=== PATIENT | female | born 1965 | race Caucasian/White ===

== ENCOUNTER → 2023-05-18 15:44 | Outpatient (CLI) | payer OTHER, SELFPAY ==
--- NOTE | ~2023-05-18 | XR_ITS ---
AP and lateral views of the right hip Clinical history: Pain Findings: No acute fracture or dislocation is seen. Osseous alignment is anatomic. Bilateral hip and SI joint spaces are preserved. Soft tissues are unremarkable. Impression: No significant abnormality is seen. Reviewed, dictated and finalized at location . Impression: No significant abnormality is seen.
== END ==
PROVIDERS: PCP Family Medicine Adolescent Medicine; Visit Provider Family Medicine Adolescent Medicine
DX: M25.551 Pain in right hip (principal)
CPT/HCPCS: 73502

== ENCOUNTER 2024-01-23 15:27 | Emergency (ER) | payer OTHER, SELFPAY ==
--- NOTE | ~2024-01-23 | XR_ITS ---
EXAMINATION: XR wrist LT min 3V DATE: 01/23/2024 15:58 INDICATION: Left wrist pain post fall TECHNIQUE: Posteroanterior, ulnar deviation, oblique, and lateral views of the left wrist were obtain ed. COMPARISON: none FINDINGS: Bone alignment is normal. No fracture. Mild osteoarthritis at the triscaphe and first carpal metacarp al joints. Subarticular lucency underlying the ulnar side of the proximal articular surface of the ishaan esther in location suspicious for ulnocarpal impaction although ulnar variance remains neutral. IMPRESSION: 1. Mild osteoarthritis at the radial aspect of the carpus. No acute osseous abnormality. Reviewed, dictated and finalized at location B. IMPRESSION: 1. Mild osteoarthritis at the radial aspect of the carpus. No acute osseous abn ormality.
--- NOTE | 2024-01-23 15:39 | ED.UPPEXIN ---
HPI - Extremity Injury (Upper) General Chief Complaint: Extremity Injury, Upper Stated Complaint: L WRIST INJ S/P FALL Time Seen by Provider: 01/23/24 15:35 Source: patient Mode of arrival: ambulatory Limitations: no limitations History of Present Illness HPI narrative: Patient is a 58-year-old female who presents the ED with report of left wrist pain. Patient reports she went to sit down in a chair and slipped, missing the chair. She tried to catch herself with her left arm/ wrist. Complains of pain to her left wrist. Denies any other areas of pain. Denies any other injuries. Denies numbness. Has not taken anything for pain. Related Data Home Medications Medication Instructions Recorded Confirmed vilazodone 40 mg tablet (Viibryd) 40 mg PO DAILY 01/18/22 11/03/23 Allergies Allergy/AdvReac Type Severity Reaction Status Date / Time ketorolac [From Toradol] Allergy Intermediate Hives Verified 11/03/23 15:14 Penicillins AdvReac Severe Hives Verified 11/03/23 15:14 methylprednisone Allergy Mild Hives Uncoded 11/03/23 15:14 Review of Systems Review of Systems: CONSTITUTIONAL: Denies fever, chills, or sweats. MUSCULOSKELETAL: See HPI NEUROLOGIC: Denies headache, dizziness, numbness, or weakness. All systems reviewed & are unremarkable except as noted in HPI and below PMFSH Past Medical History Medical History GERD (gastroesophageal reflux disease) HTN (hypertension) Low back pain, unspecified Major depressive disorder, recurrent, mild Osteoarthritis of left knee Pure hypercholesterolemia, unspecified Surgical History Surgical History History of lumbar fusion (2002) 2002 Family History Family History Father Hx of CABG Hypertension Cerebrovascular accident Heart disease Mother Brain cancer Daughter Diabetes mellitus Social History Social History Smoking status: Never smoker Second hand tobacco smoke exposure: No Alcohol intake: never Substance use: never Substance use type: does not use Living arrangements: with family Occupation/Education: occupation Gender identity (if verbalized by the patient): Female Spiritual care concerns: No Agree to blood products: Yes Exam Narrative: GENERAL: Well appearing, obese with BMI of 33.7, non-toxic, in no acute distress. HEAD: Normocephalic, atraumatic. RESPIRATORY: Airway patent, respirations nonlabored CARDIOVASCULAR: Regular rate and rhythm. Radial pulses strong and intact bilaterally. MUSCULOSKELETAL: Moves all extremities. No gross deformities. tenderness to palpation and mild swelling noted over distal radius. Minimal tenderness throughout snuffbox region. No significant tenderness over distal ulna. Able to wiggle all fingers. Capillary refill intact. Sensation intact. SKIN: Warm, dry, normal color. NEURO: A&O X3. Speech clear. Cranial nerves II-XII grossly intact. Steady gait. No ataxic movements. PSYCHIATRIC: Appropriate mood and affect. Normal interaction. MDM - Extremity Injury (Upper) MDM Narrative Medical decision making narrative: Patient?s injury is consistent with musculoskeletal etiology. No signs of neurologic or vascular compromise on physical examination. Compartments are soft without signs of compartment syndrome. XR without acute osseous abnormality. Does show possible ulnocarpal impaction. Patient does not have any tenderness over distal ulna. Pain is consistent with exam and injury. Patient placed in Chad bandage in the ED. she does have some minimal snuffbox tenderness on exam. Discussed this with patient. Offered to apply splint versus Chad bandage, however patient felt comfortable with Chad bandage, felt supported. Also provided with sling for suppor
[2024-01-23] MEDS: HYDROcodone/acetaminophen (*CRX) 5-325 MG TABLET 1 TAB PO (15:44)
== END 2024-01-23 17:27 | disposition home or self-care (01) ==
LOC: ANHED 17:01
PROVIDERS: Emergency Provider Physician Assistant; PCP Family Medicine Adolescent Medicine
DX: S63.502A Unspecified sprain of left wrist, initial encounter (principal); I10 Essential (primary) hypertension; E78.00 Pure hypercholesterolemia, unspecified; M17.12 Unilateral primary osteoarthritis, left knee; K21.9 Gastro-esophageal reflux disease without esophagitis; Z98.1 Arthrodesis status; M19.032 Primary osteoarthritis, left wrist; W07.XXXA Fall from chair, initial encounter
CPT/HCPCS: 73110; 73140; 99283; A9270

== ENCOUNTER 2024-12-01 11:33 | Emergency (ER) | payer OTHER, SELFPAY ==
--- OUTSIDE RECORDS SUMMARY | 2024-12-01 11:35 | XMS_ITS | Clinical Summary ---
Author Organization [facility] Address [address] [place] [address] Care Team Providers Care Roof Service Technician Name Role Phone Enrico Ziegler MD Primary Care Prov ider Allergies Active Allergy Reactions Criticality Noted Date Comments Ketorolac Rash Medium 11/16/2018 Medications nortriptyline (PAMELOR) 25 mg capsule Take 1 capsule (25 mg total) by mouth nightly. 30 capsule 11 12/29/2017 Active lisinopril (PRINIVIL,ZESTRI L) 10 mg tablet Take 10 mg by mouth daily. Active omeprazole (PriLOSEC) 20 mg capsule Take 20 mg by mouth daily 11/01/2020 Active meloxicam (MOBIC) 7.5 mg tablet Take 1 tablet (7.5 mg total) by mouth 2 (two) times a day 60 tablet 11/20/2021 Active nortriptyline (PAMELOR) 25 mg capsuleIndicatio ns:Postlaminecto my syndrome, lumbar,Radiculop athy, lumbosacral region TAKE 1 CAPSULE(25 MG) BY MOUTH EVERY NIGHT 90 capsule 3 12/16/2021 Active busPIRone (BUSPAR) 10 mg tablet Take 10 mg by mouth 2 (two) times a day 01/18/2022 Active traMADoL (ULTRAM) 50 mg tablet Take 1 tablet (50 mg total) by mouth every 6 (six) hours as needed for pain 120 tablet 1 01/31/2022 Active Viibryd 40 mg tabletIndication s:major depressive disorder Take 1 tablet (40 mg total) by mouth daily 7 tablet 12/15/2023 Active vilazodone (VIIBRYD) 40 mg tablet TAKE 1 TABLET DAILY WITH FOOD 90 tablet 3 03/05/2024 Active Active Problems Problem Noted Date Diagnosed Date Strain of flexor muscle of hip, left, initial en counter 11/20/2021 Obesity due to excess calories 05/04/2019 Spinal cord stimulator status 05/04/2019 Sacroiliitis 08/25/2018 Chronic bilateral low back pain with bilateral s ciatica 08/31/2017 Lumbosacral spondylosis without myelopathy 08/31 Radiculopathy, lumbosacral region 08/31/2017 Spinal stenosis of lumbar re gion without neurogenic claudication 08/31/2017 Postlaminectomy syndrome, lumbar 08/31/2017 Long-term current use of opiate analgesic 2016 Surgical History Surgery Date Site/Laterality Comments SPINE SURGERY SPINAL CORD STIMULATOR IMPLANT SPINAL FUSION Medical History Medical History Date Comments Chronic pain disorder Depression Lumbosacral disc disease Hypertension Joint pain Low back pain Osteoporosis Spinal stenosis Social History Tobacco Use Types Packs/Day Years Used Date Smoking Tobacco: Never Smokeless Tobacco: Never Alcohol Use Standard Drinks/Week Comments Yes 0 (1 standard drink = 0.6 oz pur e alcohol) seldom PHQ-2 Answer Date Recorded PHQ-2 Score 2 05/04/2019 Comments No Sex and Gender Information Value Date Recorded Sex Assigned at Not on file Legal Sex Female 9:53 AM 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 Gender Identity Not on file Sexual Orientation Not on file Obstetrics History Last Filed Vital Signs Vital Sign Reading Time Taken Comments Blood Pressure 130/89 02/18/2022 8:28 AM CDT Pulse 91 02/18/2022 8:28 AM CDT Temperature 36.3 C (97.3 F) 11/10/2020 3:49 PM 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 SPECIALIST Respiratory Rate 18 02/18/2022 8:28 AM CDT Oxygen Saturation 98% 02/18/2022 8:28 AM CDT Inhaled Oxygen Concentration - - Weight 101.6 kg (224 lb) 11/10/2020 3:49 PM 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 SPECIALIST Height 170.2 cm (5' 7 ) 11/20/2021 7:22 AM 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 SPECIALIST Body Mass Index 35.08 09/10/2019 7:19 AM 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 SPECIALIST Plan of Treatment Health Maintenance Due Date Last Done Comments Cervical Cancer Screening 1965 Colon Cancer Screening-Colonoscopy 1965 Hepatitis C Screening 1965 DTaP/Tdap/Td Vaccine (1 - Tdap) 1976 Hepatitis B Screening 1983 Regular Well Visit/Exam 18-64 1983 Zoster Vaccine (1 of 2) 2015 Depression Screening 05/04/2020 05/04/2019, 05/04/2019, 01/09/2019, Additional history exists Breast Cancer Screening-Mammogram 02/25/2024 02/24/2023, 04/19/2016, 04/15/2014 Influenza Vaccine (#1) 2024 08/07/2018, 2014 Pneumococcal vaccine <65 Aged Out No longer eligible based on patient's age to complete this topic Medical Devices Implanted Type Area Dock Associate Device Identifier Shelf Expiration Date Model / Serial / Lot Spinal Cord Stimulator Spinal Cord Stimulator Back [employer] Neurostimulator [employer] Elite Thk13.4 Mm 5 In W49.5 Mm X H55.5 Mm Spinal Cord Implantable Pulse - [id number] - [id number] Implanted:Qty: 1 on 10/20/2017 by Danie Kathleen MD at [facility] [employer] 08/18/2019 [id number] / [id number] / Explanted Type Area Dock Associate Device Identifier Shelf Expiration Date Model / Serial / Lot Gallito Spinal Cord Stimulator Explanted:Qty: 1 on 10/20/2017 at [facility] [employer] 3788 / [id number] / Procedures Procedure Name Priority Date/Time Associated Diagnosis Comments SCREENING MAMMOGRAM BILATERAL W KT Schedule Routine, Read Routine (OP Routine) 02/24/2023 2:12 PM CDT Screening mammogram, encounter for from Last 3 Months or Most Recently Relevant to Health Maintenance Results * Screening Mammogram Bilateral W Kt (02/24/2023 2:12 PM CDT) Anatomical Region Laterality Modality Breast Bilateral Mammography Narrative 02/24/2023 2:42 PM CDT Examination: Screening Mammogram Bilateral W Kt: 02/24/23 Clinical: Screening mammogram, encounter for. Prior Study Comparisons: Comparison was made to the prior available relevant studies at the time of interpretation. Findings: Bilateral No significant masses, malignant type calcifications, skin thickening, nipple retraction, or significant lymphadenopathy is noted in either breast. The CAD review showed no significant findings. The breasts have scattered areas of fibroglandular density. The patient will be notified of results by letter. Impression: BI-RADS ATLAS category (overall): 1 - Negative There is no mammographic evidence of malignancy. Routine Screening Mammogram in 1 Yr is recommended for bilateral Overall Assessment: 1 - Negative us Self Screening Mammogram IMG MAMMO PROCEDURES Fi nal Result from Last 3 Months or Most Recently Relevant to Health Maintenance Insurance [facility] [employer] Address: [facility] [address] [place] [address] [facility] [employer] H[facility]/PPO Address: [address] [address] [place] [address] [facility] [facility] H[employer]/PPO Address: [address] [address] [place] [phone] Care Teams Roof Service Technician Relationship Specialty Start Date End Date Enrico Ziegler MD [address] [place] [id number] PCP - General Family Medicine 11/20/21
--- OUTSIDE RECORDS SUMMARY | 2024-12-01 11:35 | XMS_ITS | Data Portability ---
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 I will see her back next week for the 2nd injection left knee she voiced understanding agrees above plan she will call for any further problems difficulties or questions. Not available 02/09/2024 10:53:10 02/17/2024 02/17/2024 The patient has severe primary osteoarthritis of the patellofemoral articulation left knee mild to moderate primary osteoarthritis in the tibial femoral articulation at her request under sterile conditions I injected the patient's left knee joint in the office with Euflexxa injection number 2. I will see her back next week for the 3rd injection that she brings from the specialty pharmacy. She voiced understanding agrees above plan she will call for any further problems difficulties or questions. Not available 02/17/2024 12:14:08 02/21/2024 02/21/2024 The patient has a healing fracture of the distal radius left wrist. Today's x-rays show new callus formation her comfort level and range of motion are much better and improving with time. She is going to continue with cock-up wrist brace continue with gentle range of motion gentle strengthening I will see her back in about 3 weeks for final x-rays. If she is any further problems difficulties or questions she is instructed to call she voiced understanding and agrees with the above plan. Not available 02/21/2024 15:41:26 02/23/2024 02/23/2024 The patient has severe primary osteoarthritis in the patellofemoral articulation left knee mild to moderate in the tibial femoral articulation we talked about treatment options today for the future we could do cortisone in a few months versus gel shots again in 6 months we will see how she does so far she is doing very well with the current round of gel shots. under sterile conditions today I injected the patient's left knee joint in the office with Euflexxa injection number 3 that she brings with her from the specialty pharmacy. She tolerated the procedure well. I will see her back as needed she voiced understanding agrees above plan she will call for any further problems difficulties or questions. Not available 02/23/2024 11:36:45 03/27/2024 03/27/2024 The patient has a healed fracture of the left distal radius today's x-rays show good alignment and callus formation. At this point she can get out of the cock-up wrist brace start working on more motion and strengthening as tolerated. I have advised her it is going to be a little stiff and sore for awhile until she gets back into normal activities gets it moving. She is going to work on this we talked about this in detail she wants to work on it on her own at home. I will see her back as needed for now she is dismissed she voiced understanding and agrees above plan she will call for any further problems difficulties or questions. Not available 03/27/2024 14:30:41 Plan of Treatment Reminders Order Date Submit Date Provider Last Modified By Organization Details Last Modified Time Details Appointments None recorded. Lab None recorded. Referral None recorded. Procedures injection/a spiration joint/bursa (PROC) - in office procedure, administere d by provider 2023 024 [email or web address] In-Office Order, Internal Use Only DO Not Attach Compendium DO Not Attach Compendium, Do Not Delete/merge, [id number] 11:27:18 injection/a spiration joint/bursa (PROC) - in office procedure, administere d by provider 2023 024 [email or web address] In-Office Order, Internal Use Only DO Not Attach Compendium DO Not Attach Compendium, Do Not Delete/merge, [id number] 12:05:05 injection/a spiration joint/bursa (PROC) - in office procedure, administere d by provider 2023 024 [email or web address] In-Office Order, Internal Use Only DO Not Attach Compendium DO Not Attach Compendium, Do Not Delete/merge, [id number] 10:37:04 Surgeries None recorded. Imaging XR, wrist, 3 or more view 2023 024 [email or web address] [facility] [place], [address], [place], [address], 4 15:35:14 XR, wrist 2023 024 [email or web address] [facility] [place], [address], [place], [address], 4 15:43:49 Medication Orders None recorded. Patient TargetsNo targets recorded. Patient InstructionsNo instructions recorded. Reason for Referral None Reported. Results Created Date Observation Date Name Description Value Unit Range Abnormal Flag Note LastModifiedBy Organization Detail LastModifiedTime 01/26/20 24 01/23/2024 XR, wrist , 3 or more view No observ ation record ed. [email or web address] Not Available 01/10 10:51:49 02/21/20 24 XR, wrist No observ ation record ed. [email or web address] [facility] [place] [address], [place], [address], 02/21/2024 15:42:36 03/27/20 24 XR, wrist , 3 or more view No observ ation record ed. [email or web address] [facility] [place] [address], [place], [address], 03/27/2024 14:31:12 Result Notes None recorded. Problems Name Problem SNOMED Code Status Onset Date Resolution Date Notes Provider Name and Address Organization Details Recorded Time Osteoarthr itis of left knee joint 1256422779388 09 Active 2021 Not Available [facility] 3 01:24:24 Osteoarthr itis of right knee joint 7351221067527 00 Active 2021 Not Available [facility] 3 01:24:24 Pain of left knee joint 7670279493915 07 Active 2023 Jael Bain ACCESSIBILITY LIFT TECHNICIAN null, [place] [facility] 4 15:14:23 Pain of left hand 6458102631857 03 Active 2023 Jael Odell, ACCESSIBILITY LIFT TECHNICIAN null, [place] [email or web address] 4 14:34:55 Pain of left wrist 4721079353646 02 Active 2023 Jael Odell, ACCESSIBILITY LIFT TECHNICIAN null, [place] [facility] 4 14:35:05 Closed fracture of distal end of left radius 6640625273042 9107 Active 2023 PEGGY Barron [address] [place] [address], [facility] [address], [place], [address] , [place] [email or web address] 4 14:58:57 Problem Notes None recorded. Procedures Surgical History Date Name Laterality Status Provider Name and Address Organization Details Recorded Time Back Surgery completed CATIE PatelA [place] [facility] 12/01/2023 15:14:02 Imaging Results Imaging Date Name Status LastModified by Organiz ation Details LastModified Time 01/23/2024 XR, wrist, 3 or more view completed [email or web address] Information not available 01/26/2024 10:51:49 02/21/2024 XR, wrist completed [email or web address] [facility] [place] [address], [place], [address], 02/21/2024 15:42:36 03/27/2024 XR, wrist, 3 or more view completed [email or web address] [facility] [place] [address], [place], [address], 03/27/2024 14:31:12 Procedure Notes None recorded. Medical Equipment None Reported. Allergies Allergen ID Allergen Name Allergen Category Reaction Reaction Severity Criticality Documentation Date Start Date Code Code System Note Provider Name and Address Organization Details Recorded Time 99198 Product containin g penicilli n (product) medicatio n Not available Not available Not available 12/01/2023 78827 8001 SNOMED NNEKA Patel, [place] [facility] 15:10:16 Medications Name Sig Start Date Stop Date Status Note LastModified by Organization Details LastModified Time cyclobenzap rine 10 mg tablet active Not Available Not Available Not Available prednisone 10 mg tablet 11/30 completed Not Available Not Available Not Available hydrocodone 5 mg-acetamin ophen 325 mg tablet active Not Available Not Available No t Available ciprofloxac in 500 mg tablet TAKE 1 TABLET BY MOUTH EVERY 12 HOURS FOR 7 DAYS 11/30 completed Not Available Not Available Not Available sulfamethox azole 800 mg-trimetho prim 160 mg tablet TAKE 1 TABLET BY MOUTH TWICE DAILY FOR 5 DAYS 11/30 completed Not Available Not Available Not Available hydrocodone 10 mg-acetamin ophen 325 mg tablet TAKE 1 TABLET BY MOUTH EVERY 6 HOURS NEEDED FOR PAIN 11/30 completed Not Available Not Available Not Available tramadol 50 mg tablet TAKE 1 TABLET BY MOUTH EVERY 6 HOURS NEEDED FOR PAIN active Not Available Not Available No t Available prednisone 10 mg tablets in a dose pack Take 1 tab by mouth, 3 times a day for 3 daysTake 1 tab by mouth 2 times a day for 2 daysTake 1 tab by mouth once a day for 1 day 11/30 completed Not Available Not Available Not Available nortriptyli ne 25 mg capsule active Not Available Not Available Not Available meloxicam 7.5 mg tablet 11/30 completed Not Available Not Available Not Available alprazolam 0.5 mg tablet active Not Available Not Available Not Available Kenalog 10 mg/mL suspension for injection Take 20 mg by injection route. 2023 active [facility]: 0003- 0494- 20 Not Available Not Available Not Available baclofen 10 mg tablet 11/30 completed Not Available Not Available Not Available buspirone 10 mg tablet TAKE 1 TABLET BY MOUTH TWICE DAILY 11/30 completed Not Available Not Available Not Available lisinopril 10 mg tablet active Not Available Not Available Not Available indomethaci n 50 mg capsule 11/30 completed Not Available Not Available Not Available omeprazole 20 mg capsule,del ayed release TAKE ONE CAPSULE BY MOUTH EVERY DAY active Not Available Not Available No t Available methylpredn isolone 4 mg tablets in a dose pack 11/30 completed Not Available Not Available Not Available Marcaine (PF) 0.5 % (5 mg/mL) injection solution Take 20 mg by injection route. 2023 active Not Available Not Available Not Avai lable nitrofurant oin monohydrate /macrocryst als 100 mg capsule TAKE 1 CAPSULE BY MOUTH TWICE DAILY FOR 7 DAYS 11/30 completed Not Available Not Available Not Available Euflexxa 10 mg/mL (mw 2.4-3.6 million) intra-artic ular syringe Inject 2 mL by intra-art icular route as directed for 21 days. active Not Available Not Available No t Available vilazodone 40 mg tablet TAKE 1 TABLET BY MOUTH EVERY DAY WITH FOOD active Not Available Not Available No t Available ropivacaine (PF) 5 mg/mL (0.5 %) injection solution in office 11/30 completed [facility] 49363 -064- 01 Not Available Not Available Not Available Flowflex COVID-19 Antigen Home Test kit active Not Available Not Available Not Available Vitals Date Recorded Body height Body mass index (BMI) Body weight Provider Name and Address Organization Details Last Updated DateTime 02/09/2024 170.18 cm 33.7 kg/m2 49260.36 g Jael Bain CNA [employer] 02/09/2024 10:35:40 Date Recorded Body height Body mass index (BMI) Body weight Provider Name and Address Organization Details Last Updated DateTime 02/17/2024 167.64 cm 34.7 kg/m2 16620.36 g Jael Bain CNA [place] [facility] 02/17/2024 12:04:18 Date Recorded Body height Body mass index (BMI) Body weight Provider Name and Address Organization Details Last Updated DateTime 02/21/2024 170.18 cm 33.7 kg/m2 97325.36 g Jael Bain CNA [facility] 02/21/2024 15:16:20 Date Recorded Body height Body mass index (BMI) Body weight Provider Name and Address Organization Details Last Updated DateTime 02/23/2024 170.18 cm 33.7 kg/m2 44634.36 g Jael Bain [facility] 02/23/2024 11:26:34 Date Recorded Body height Body mass index (BMI) Body weight Pain severity - 0-10 verbal numeric rating [Score] - Reported Provider Name and Address Organization Details Last Updated DateTime 03/27/2024 170.18 cm 32.7 kg/m2 87131.81 g 5 Martina Maciel [facility] 03/27/2024 14:08:45 Social History Question Answer Notes LastModified by Organizat ion Details LastModified Time Tobacco Smoking Status Never Smoker Not Available [facility] 11/11/2022 01:23:13 What Is Your Level Of Alcohol Consumption? None [id number] Information not available 11/11/2022 Sex: Unknown Functional Status None recorded. Mental Status None recorded. Family History Relationship Description Onset Age of this Age Resolved Age Notes LastModified by Organization Details LastModified Time Mother Malignant neoplasm of brain [id number] Not available 11/11/2022 01:23:19 Father Heart disease [email or web address] Not available 2023 15:13:20 Medical History No medical history recorded. Gynecological HistoryNo gynecological history recorded. Obstetrics History GPAL:G 0 P 0 0 0 0 Past Encounters Encounter ID Performer Location Encounter Start Date Encounter Closed Date Diagnosis/Indication Diagnosis SNOMED-CT Code Diagnosis ICD10 Code Diagnosis Note [id number] [facility] [place] [address] [place] [address] 08/03/2022 00:00:00 08/03/2022 16:22:37 [id number] PEGGY Barron [facility] [place] [address] [place] [address] 02/03/2023 10:38:27 02/03/2023 11:03:07 Osteoarthritis of left knee joint 4115835608 88961 M17.12 [id number] PEGGY aBrron [facility] [place] [address] [place] [address] 12/01/2023 14:55:13 12/01/2023 16:17:12 Osteoarthritis of left knee joint 2812368462 81296 M17.12 Pain of le ft knee joint 3826882386 30863 M25.058 [id number] PEGGY Barron [facility] [place] [address] [place] [address] 01/31/2024 14:26:27 01/31/2024 15:20:40 Pain of left wrist 4845657850 19878 M25.532 Closed fra cture of distal end of left radius 2535628921 0807742 S52.502A [id number] PEGGY Barron [facility] [place] [address] [place] [address] 02/09/2024 10:32:34 02/09/2024 11:15:03 Osteoarthritis of left knee joint 6686041559 61947 M17.12 Pain of le ft knee joint 7174763768 53168 M25.139 [id number] PEGGY Barron [facility] [place] [address] [place] [address] 02/17/2024 12:01:25 02/17/2024 12:15:56 Osteoarthritis of left knee joint 3386599171 23341 M17.12 Pain of le ft knee joint 6953470011 44893 M25.038 [id number] PEGGY Barron [facility] [place] [address] [place] [address] 02/21/2024 15:11:11 02/21/2024 15:38:41 Closed fracture of distal end of left radius 1321396579 1246680 S52.502D Pain of left wrist 66674 78840 13477 M25.883 [id number] PEGGY Barron [facility] [place] [address] [place] [address] 02/23/2024 11:23:23 02/23/2024 11:36:12 Osteoarthritis of left knee joint 2599318184 03178 M17.12 Pain of le ft knee joint 3314330177 86098 M25.542 [id number] PEGGY Barron [facility] [place] [address] [place] [address] 03/27/2024 14:05:19 03/27/2024 14:46:18 Closed fracture of distal end of left radius 0250327038 8800412 S52.502D Pain of left wrist 26604 55325 15739 M25.532 Health Concerns Section Related Observation LastModified by Organization Detai ls LastModified Time None Recorded Concern Status LastModified by Organization Details LastModified Time None Recorded Advance Directives Directive None Recorded Payers Encounter Date Sequence Insurance Name Policy Number Policy Khan Covered Member ID Khan Member ID Guarantor Name 02/09/2024 1 [facility] [id number] Sonia L Segieda [id number] Sonia Segieda 02/17/2024 1 [facility] [id number] Sonia L Segieda [id number] Sonia Segieda 02/21/2024 1 [facility] [id number] Sonia L Segieda [id number] Sonia Segieda 02/23/2024 1 [facility] [id number] Sonia L Segieda [id number] Sonia Segieda 03/27/2024 1 [facility] [id number] Sonia L Segieda [id number] Sonia Segieda Notes Date Note Type Note Provider Name and Address Organization Details Recorded Time 02/09/2024 text/html Patient returns for Euflexxa injection number 1 left knee that she brings from the specialty pharmacy. She has chronic left knee pain she has advanced primary osteoarthritis of the patellofemoral articulation has trouble squatting kneeling going up and down stairs. She has mild to moderately severe primary osteoarthritis of the tibial femoral articulation as well. She is tried cortisone therapy and anti-inflammatories still has some pain she would now like to try a course of gel shots. Denies any new problems with her left knee. PEGGY Barron [address], [place], [address], [email or web address] 02/09/2024 10:53:21 02/17/2024 text/html Patient returns for Euflexxa injection number 2 left knee. 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 She is failed other conservative measures but states even after the 1st injection of the Euflexxa she was able to walk around on vacation in [place] last weekend and did very well had much less pain than previously. She is quite pleased with the results so far. PEGGY Barron [address], [place], [address], [email or web address] 02/17/2024 12:14:27 02/21/2024 text/html Patient returns for recheck of her left wrist. She had an impaction type fracture of the distal radius there was some avulsion and buckling of the dorsum of the distal radius cortex. The patient has been in a cock-up wrist brace doing quite well. She had some stiffness initially she has been working on range of motion not doing anything heavy repetitive. She comes in today demonstrating near full range of motion with only minor discomfort at the extremes of motion. She has no obvious deformity of the hand or wrist she still is little tender here otherwise doing very well. She is working on some gentle strengthening with a stress ball also. She is pleased with her progress in terms of her range of motion and comfort level states today the pain is much better comes in today for new x-rays. PEGGY Barron [address], [place], [address], [email or web address] 02/21/2024 15:43:06 02/23/2024 text/html Patient returns for Euflexxa injection number 3 that she brings from the specialty pharmacy for her left knee. She has severe primary osteoarthritis of the patellofemoral articulation and mild to moderate primary osteoarthritis in the tibial femoral articulation. She states she is getting good relief from the 1st 2 rounds of injections denies any problems. She definitely is noting significant improvement in her overall discomfort. PEGGY Barron [address], [place], [address], [facility] [facility] 02/23/2024 11:37:06 03/27/2024 text/html patient returns she is now 2 months status post injury to her left wrist she had a mildly impacted distal radius fracture with some avulsion and buckling of the dorsum of the distal radial cortex. She has done well with treatment including casting in a cock-up wrist brace. She still has a little bit of stiffness lacks more flexion than extension only by about 5 or so. She states she still has some discomfort if she tries to do anything a little more heavy or repetitive but otherwise is doing well she is improving with time she comes in today for final x-rays and recheck. PEGGY Barron [address], [place], [address], [email or web address] 03/27/2024 14:31:36 OBGyn Episode No OBEpisode recorded.
--- OUTSIDE RECORDS SUMMARY | 2024-12-01 11:35 | XMS_ITS | Referral Summary ---
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 Garage Construction Equipment Mechanic Name Role Phone Enrico Ziegler MD Primary [...] Long-term current use of opiate analgesic 2016 Social History Tobacco Use Types Packs/Day Years Used Date Smoking Tobacco: Never Smokeless Tobacco: Never Alcohol Use Standard Drinks/Week Comments Yes 0 (1 standard drink = 0.6 oz pur e alcohol) seldom PHQ-2 Answer Date Recorded PHQ-2 Score 2 05/04/2019 Comments No Sex and Gender Information Value Date Recorded Sex Assigned at Not on file Legal Sex Female 9:53 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 Gender Identity Not on file Sexual Orientation Not on file Last Filed Vital Signs Vital Sign Reading Time Taken Comments Blood Pressure 130/89 02/18/2022 8:28 AM CDT Pulse 91 02/18/2022 8:28 AM CDT Temperature 36.3 C (97.3 F) 11/10/2020 3:49 PM INTERACTIVE MULTIMEDIA DESIGNER Respiratory Rate 18 02/18/2022 8:28 AM CDT Oxygen Saturation 98% 02/18/2022 8:28 AM CDT Inhaled Oxygen Concentration - - Weight 101.6 kg (224 lb) 11/10/2020 3:49 PM INTERACTIVE MULTIMEDIA DESIGNER Height 170.2 cm (5' 7 ) 11/20/2021 7:22 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 Body Mass Index 35.08 09/10/2019 7:19 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 Plan of Treatment Not on file Medical Devices Implanted Type Area Plaster Applicator Device Identifier Shelf Expiration Date Model / Serial / Lot Spinal Cord Stimulator Spinal Cord Stimulator Back St [employer]ator Neurostimulator [employer] Elite Thk13.4 Mm 5 In W49.5 Mm X H55.5 Mm Spinal Cord Implantable Pulse - [id number] - [id number] Implanted:Qty: 1 on 10/20/2017 by Danie Kathleen MD at [facility] 08/18/2019 [id number] / [id number] / Explanted Type Area Plaster Applicator Device Identifier Shelf Expiration Date Model / Serial / Lot Gallito Spinal Cord Stimulator Explanted:Qty: 1 on 10/20/2017 at [facility] [employer] 3788 / [id number] / Procedures Procedure Name Priority Date/Time Associated [...] Most Recently Relevant to Health Maintenance Insurance [facility] Address: [address] [address] [place] [address] [place] [address] [facility] Address: [address] [address] [place] [address] [place] [address] [facility] Address: [address] [address] [place] [address] Care Teams Garage Construction Equipment Mechanic Relationship Specialty Start Date End Date Enrico Ziegler MD [address] [phone] PCP - General Family Medicine 11/20/21
[2024-12-01 11:36] VITALS: BP 108/66; PULSE 100; RESP 20; TEMP 36.7; O2SAT 95
[2024-12-01 11:58] LABS: EDUAAPPEAR Clear; EDUABILI 1+ (Negative); EDUABLOOD 1+ (Negative); EDUACOLOR1 Orange; EDUAGLUCOSE Trace (Negative); EDUAKETONE Negative (Negative); EDUALEUKO 3+ (Negative); EDUANITRATE Positive (Negative); EDUAPH 5.5; EDUAPROTEIN 2+ (Negative)
--- NOTE | 2024-12-01 12:32 | ED.GENADULT ---
HPI - General Adult General Chief complaint: Urogenital-Female Stated complaint: had UTI/moved to back pain/nausea Source: patient Mode of arrival: ambulatory Limitations: no limitations History of Present Illness HPI narrative: Patient presents for evaluation of urinary symptoms. Symptom onset 1 week ago. She contacted her primary care provider in the give her prescription for fluconazole. No urine collection was ever performed. She reports dysuria, urinary frequency, urgency, and decreased output. She had some right-sided flank pain with radiation to the right-sided abdomen and reports low grade fever, nausea and vomiting yesterday. Her flank and abdominal pain have subsided. She tried taking Azo for her symptoms. Related Data Home Medications ?Medication ?Instructions ?Recorded ?Confirmed ?Last Taken ?Type vilazodone 40 mg tablet (Viibryd) 40 mg PO DAILY 01/18/22 11/12/24 Unknown History Allergies Allergy/AdvReac Type Severity Reaction Status Date / Time ketorolac (From Toradol) Allergy Intermediate Hives Verified 12/01/24 11:45 Penicillins AdvReac Severe Hives Verified 12/01/24 11:45 methylprednisone Allergy Mild Hives Uncoded 11/12/24 09:33 Review of Systems Review of Systems: CONSTITUTIONAL: Denies fever, chills, or sweats. EYES: Denies visual changes, redness, or discharge. ENT: Denies rhinorrhea, congestion, sore throat, or otalgia. CARDIOVASCULAR: Denies chest pain, palpitations, or edema. RESPIRATORY: Denies cough or dyspnea. GASTROINTESTINAL: Reports abdominal pain. Denies nausea, vomiting, or diarrhea. GENITOURINARY: Reports dysuria, urinary frequency, urgency, decreased urinary output SKIN: Denies rash or itching. MUSCULOSKELETAL: Reports right flank pain. Reports chronic back pain. Denies joint pain or myalgia. NEUROLOGIC: Denies headache, numbness, dizziness, or weakness. PSYCHIATRIC: Denies anxiety or depression. [facility] Past Medical History Medical History Osteoarthritis of left knee Pure hypercholesterolemia, unspecified Major depressive disorder, recurrent, mild Low back pain, unspecified HTN (hypertension) GERD (gastroesophageal reflux disease) Surgical History Surgical History History of lumbar fusion (2002) 2002 Family History Family History Father Hx of CABG Hypertension Cerebrovascular accident Heart disease Mother Brain cancer Daughter Diabetes mellitus Social History Social History Smoking status: Never smoker Second hand tobacco smoke exposure: No Alcohol intake: never Substance use: never Substance use type: does not use Living arrangements: with family Occupation/Education: occupation Gender identity (if verbalized by the patient): Female Spiritual care concerns: No Agree to blood products: Yes Exam Narrative: GENERAL: Well-appearing, well-nourished, and in no acute distress. HEAD: Normocephalic, atraumatic. EYES: PERRLA and EOMI. ENT: Nares clear, no rhinorrhea or epistaxis. Mucous membranes moist. Oropharynx without tonsillar hypertrophy exudate or other lesions. Bilateral TMs pearly sargent nonbulging NECK: Supple. No adenopathy or masses. No carotid bruits or JVD CHEST: Clear to auscultation. No respiratory distress. No wheezes rales or rhonchi HEART: Regular rate and rhythm. No murmur heard. Normal peripheral pulses. ABDOMEN: Soft, nontender, nondistended, normal active bowel sounds. BACK: Right sided CVA tenderness. No left CVA tenderness EXTREMITIES: Normal range of motion. No edema. SKIN: Warm, dry, no rash. NEURO: No focal deficits. Alert and oriented x3. PSYCH: Normal mood and affect. Course Course Emergency Course: This is a 59-year-old female who presented for evaluation urinary symptoms. I am not sure why she was given fluconazole for her symptoms. She is not having any vaginal bleeding or discharge. She does have nitrite positive urine. Will treat with Bactrim. I did discuss potentially sending her to the emergency department to rule out right-sided kidney stone. She actually looks quite comfortable and states that her pain has subsided. Therefore, through shared decision making opted to be discharged home. In the event that she has recurrence of her symptoms, worsening right-sided flank or abdominal pain, fever, or inability to keep fluids down, she will go to the ER. Pt will follow up with primary next week. Will dc with bactrim and pyridium. Level of Care: Express Care Visit Vital Signs Vital signs: Vital Signs Temperature 36.7 C 12/01/24 11:36 Pulse Rate 100 12/01/24 11:36 Respiratory Rate 20 12/01/24 11:36 Blood Pressure 108/66 12/01/24 11:36 Pulse Oximetry 95 12/01/24 11:36 Oxygen Delivery Room Air 12/01/24 11:36 Temperature 36.7 C 12/01/24 11:36 Pulse Rate 100 12/01/24 11:36 Respiratory Rate 20 12/01/24 11:36 Blood Pressure 108/66 12/01/24 11:36 Pulse Oximetry 95 12/01/24 11:36 Oxygen Delivery Room Air 12/01/24 11:36 Medical Decision Making Vital Signs Vital Signs: Vital Signs Temperature 36.7 C 12/01/24 11:36 Pulse Rate 100 12/01/24 11:36 Respiratory Rate 20 12/01/24 11:36 Blood Pressure 108/66 12/01/24 11:36 Pulse Oximetry 95 12/01/24 11:36 Oxygen Delivery Room Air 12/01/24 11:36 Temperature 36.7 C 12/01/24 11:36 Pulse Rate 100 12/01/24 11:36 Respiratory Rate 12/01/24 11:36 Blood Pressure 108/66 12/01/24 11:36 Pulse Oximetry 95 12/01/24 11:36 Oxygen Delivery Room Air 12/01/24 11:36 Lab Data Labs: Lab Results 12/01/24 Range/Units 11:48 POC Urine Color [place] POC Urine Clarity Clear POC Urine pH 5.5 POC Ur Specif [place] 1.020 POC Urine Protein 2+ (Negative) POC Ur Glucose (UA) Trace (Negative) POC Urine Ketones Negative (Negative) POC Urine Blood 1+ (Negative) POC Urine Nitrite Positive (Negative) POC Urine Bilirubin 1+ (Negative) POC Urine Urobilinogen 1.0 POC U Leukocyte Esteras 3+ (Negative) Discharge Plan Discharge Clinical Impression: UTI (urinary tract infection) Patient Disposition: Home, Self-Care Condition: Stable Instructions: Antibiotic Form, Urinary Tract Infection in Women (DC) Additional Instructions: If you develop recurrent right flank pain/abdominal pain, are unable to keep fluids down, experience fever or worsening symptoms, please go to the ER Patient Language: Guamanian Prescriptions: New phenazopyridine [Pyridium] 200 mg tablet 200 mg PO TID Qty: 6 0RF sulfamethoxazole-trimethoprim [Bactrim DS] 800-160 mg tablet 1 tablet PO Q12H 7 Days Qty: 14 0RF No Action Viibryd 40 mg tablet 40 mg PO DAILY Rx Instructions: must administer with a meal/food omeprazole 20 mg capsule,delayed release(DR/EC) 20 mg PO DAILY 90 Days Qty: 90 3RF alprazolam 0.5 mg tablet 0.5 mg PO BID PRN (Reason: anxiety) Qty: 30 5RF lisinopril 10 mg tablet 10 mg PO DAILY Qty: 90 1RF cyclobenzaprine 10 mg tablet 10 mg PO TID PRN (Reason: muscle spasm) Qty: 30 3RF tramadol 50 mg tablet 50 mg PO Q6H PRN (Reason: pain) Qty: 120 3RF fluconazole 150 mg tablet 150 mg PO ONCE Qty: 2 0RF Rx Instructions: as a single dose. Repeat dose in 7 days hydrocodone-acetaminophen 10-325 mg tablet 1 tablet PO BID PRN (Reason: pain) Qty: 60 0RF Follow-up/Referrals: Enrico Ziegler MD [Primary Care Provider] - Time of Disposition: 12:31
== END 2024-12-01 12:34 | disposition home or self-care (01) ==
PROVIDERS: Emergency Provider Nurse Practitioner; PCP Family Medicine Adolescent Medicine
DX: N39.0 Urinary tract infection, site not specified (principal); I10 Essential (primary) hypertension
CPT/HCPCS: 81003; 87086; 87186; 99213; G0463

== ENCOUNTER 2025-05-27 13:05 | Emergency (ER) | payer OTHER, SELFPAY ==
[2025-05-27 13:11] VITALS: BP 118/72; PULSE 77; RESP 16; TEMP 36.4; O2SAT 100
--- NOTE | 2025-05-27 13:31 | ED.SKABFB ---
HPI - Skin/Abscess/Foreign Bdy General Chief complaint: Skin/Abscess/Foreign Body Stated complaint: right hand finger infection Time Seen by Provider: 05/27/25 13:31 Source: patient Mode of arrival: ambulatory Limitations: no limitations History of Present Illness HPI narrative: 60-year-old female presented for complaint of redness and swelling to the right ring fingernail. Onset 1 week. Has used peroxide and Neosporin without improvement. Has also attempted to drain the site. Denies drainage. Related Data Home Medications ?Medication ?Instructions ?Recorded ?Confirmed ?Last Taken ?Type vilazodone 40 mg tablet (Viibryd) 40 mg PO DAILY 01/18/22 11/12/24 Unknown History Allergies Allergy/AdvReac Type Severity Reaction Status Date / Time ketorolac (From Toradol) Allergy Intermediate Hives Verified 05/27/25 13:16 Penicillins AdvReac Severe Hives Verified 05/27/25 13:16 methylprednisone Allergy Mild Hives Uncoded 11/12/24 09:33 Review of Systems Review of Systems: CONSTITUTIONAL: Denies body aches, fever, chills, or sweats. EYES: Denies visual changes, redness, or discharge. ENT: Denies rhinorrhea, congestion CARDIOVASCULAR: Denies chest pain, palpitations, or edema. RESPIRATORY: Denies cough or dyspnea. GASTROINTESTINAL: Denies abdominal pain, nausea, vomiting, or diarrhea. SKIN: reports ingrown nail MUSCULOSKELETAL: Denies back pain, joint pain, or myalgia. NEUROLOGIC: Denies headache, numbness, tingling, or weakness. [facility] Past Medical History Medical History Osteoarthritis of left knee Pure hypercholesterolemia, unspecified Major depressive disorder, recurrent, mild Low back pain, unspecified HTN (hypertension) GERD (gastroesophageal reflux disease) Surgical History Surgical History History of lumbar fusion (2002) 2002 Family History Family History Father Hx of CABG Hypertension Cerebrovascular accident Heart disease Mother Brain cancer Daughter Diabetes mellitus Social History Social History Smoking status: Never smoker Second hand tobacco smoke exposure: No Alcohol intake: never Substance use: never Substance use type: does not use Living arrangements: with family Occupation/Education: occupation Gender identity (if verbalized by the patient): Female Spiritual care concerns: No Agree to blood products: Yes Comments At time of signature, I have reviewed and agree with nursing past medical, surgical, social and family history unless otherwise noted. Please see nursing chart for further information. There is no relevant family history pertinent to the presenting complaint Exam Narrative: GENERAL: Well-appearing HEAD: Normocephalic, atraumatic. EYES: conjunctivae clear, and EOMI. ENT: Mucous membranes moist. Oropharynx without edema, erythema or lesions. NECK: Supple. No lymphadenopathy CHEST: Clear to auscultation. HEART: Regular rate and rhythm. SKIN: Right hand 4th digit with ingrown nail mild swelling and erythema surrounding the nail, no fluctuance or active drainage. CMS intact. NEURO: Alert and oriented x3. Course Course Emergency Course: Patient is aware of diagnosis, understands and agrees to treatment plan. Anticipatory guidance given. Patient agrees to follow-up as directed and is aware of reasons to seek care at the emergency department. Portions of this record may have been created with voice recognition software Level of Care: Express Care Visit Vital Signs Vital signs: Vital Signs Temperature 97.5 F L 05/27/25 13:11 Pulse Rate 77 05/27/25 13:11 Respiratory Rate 16 05/27/25 13:11 Blood Pressure 118/72 05/27/25 13:11 Pulse Oximetry 100 05/27/25 13:11 Oxygen Delivery Room Air 05/27/25 13:11 Temperature 97.5 F L 05/27/25 13:11 Pulse Rate 77 05/27/25 13:11 Respiratory Rate 16 05/27/25 13:11 Blood Pressure 118/72 05/27/25 13:11 Pulse Oximetry 100 05/27/25 13:11 Oxygen Delivery Room Air 05/27/25 13:11 Reviewed MDM - Skin/Abscess/Foreign Bdy MDM Narrative Medical decision making narrative: Discussed physical exam findings consistent with ingrown fingernail, will send antibiotic at this time. No indication for I and D.. Advised supportive measures and signs/symptoms to go to the ER. Pt is appropriate for outpt treatment and f/u. Differential Diagnosis Differential diagnosis: Likely abscess of skin or subcutaneous tissue, viral exanthem, dermatophytosis, urticaria, herpes zoster, cellulitis, eczema, insect bites, impetigo and contact dermatitis Discharge Plan Discharge Clinical Impression: Ingrown nail of right ring finger Patient Disposition: Home Condition: Stable Instructions: Antibiotic Form, Ingrown Nail (ED) Additional Instructions: Soak your nail in warm water 4 times each day. This can help with any additional drainage that needs to come out. Elevate the hand. This will help decrease swelling and pain. Avoid cutting or biting cuticles Tylenol as needed for pain Take antibiotic as directed Please follow-up with your primary care doctor in the next 3 days. please go to the ED for any urgent issues. Patient Language: Salvadorean Prescriptions: New cephalexin 500 mg capsule 500 mg PO Q8H 5 Days Qty: 15 0RF No Action Viibryd 40 mg tablet 40 mg PO DAILY Rx Instructions: must administer with a meal/food tramadol 50 mg tablet 50 mg PO Q6H PRN (Reason: pain) Qty: 120 3RF lisinopril 10 mg tablet 10 mg PO DAILY Qty: 90 1RF Follow-up/Referrals: Enrico Ziegler MD [Primary Care Provider, Family Practice] Time of Disposition: 13:36
--- OUTSIDE RECORDS SUMMARY | 2025-05-27 15:35 | XMS_ITS | Clinical Summary ---
Author Organization [facility] Address [address] [place] [address] Care Team Providers Care Online Marketing Strategist Name Role Phone Enrico Ziegler MD Primary Care Prov ider Allergies Active Allergy Reactions Criticality Noted Date Comments Ketorolac Rash Medium 11/16/2018 Medications lisinopril (PRINIVIL,ZESTRI L) 10 mg tablet Take 10 mg by mouth daily. Active omeprazole (PriLOSEC) 20 mg capsule Take 20 mg by mouth daily 11/01/2020 Active traMADoL (ULTRAM) 50 mg tablet Take 1 tablet (50 mg total) by mouth every 6 (six) hours as needed for pain 120 tablet 1 01/31/2022 Active vilazodone (VIIBRYD) 40 mg tablet TAKE 1 TABLET DAILY WITH FOOD 90 tablet 3 02/28/2025 Active Active Problems Problem Noted Date Diagnosed [...] Long-term current use of opiate analgesic 2016 Encounters Date Type Department Care Team Description 03/31/2025 Results [facility] [address] [place] [address] Office [facility] [address] [place] [id number] Derrick Rios MD Pap and HPV, reflex to HPV Genotypes 03/29/2025 Results [facility] [place] [phone] Derrick Rios MD Screening Mammogram Bilateral W Dariusz 03/28/2025 11:24 AM CDT - 03/28/2025 11:59 PM CDT Hospital Encounter [facility] - Imaging [address] [place] [address] Screening mammogram, encounter for Discharge Disposition: Discharge to home or self care 03/28/2025 11:15 AM CDT [facility] [address] [place] [address] Derrick Rios MD Well woman exam with routine gynecological exam (Primary Dx); Cervical cancer screening from Last 3 Months Surgical History Surgery Date Site/Laterality Comments SPINE SURGERY SPINAL CORD STIMULATOR IMPLANT 09/12/2014 - 09/11/2015 SPINAL FUSION 09/12/2000 - 09/11/2001 Medical History Medical History Date Comments Chronic pain disorder Depression Lumbosacral disc disease Hypertension Joint pain Low back pain Osteoporosis Spinal stenosis Family History Medical History Relation Name Comments Diabetes Daughter Osteoporosis Maternal Grandmother Relation Name Status Comments Daughter Alive Maternal Grandmother Social History Tobacco Use Types Packs/Day Years Used Date Smoking Tobacco: Never Smokeless Tobacco: Never Alcohol Use Standard Drinks/Week Comments Yes 0 (1 standard drink = 0.6 oz pur e alcohol) seldom PHQ-2 Answer Date Recorded PHQ-2 Score 2 05/04/2019 Comments No Sex and Gender Information Value Date Recorded Sex Assigned at Not on file Legal Sex Female 9:53 AM DATABASE DBA Gender Identity Not on file Sexual Orientation Not on file Obstetrics History Para Term AB IAB SAB Ectopic Multiple Livin g Live Births 2 2 2 Date Outcome GA Total Labor Labor/2nd/3rd Weight Sex Type Anes PTL Pepper A1 A5 Name Clin Para Para Comments # 1: 1995 vacuum a ssisted vag del, F, Mandi, 8#3, DW at [facility]. # 2: 1996 , F, Damian, 8#11, DW at [facility] . Last Filed Vital Signs Vital Sign Reading Time Taken Comments Blood Pressure 122/78 03/28/2025 10:57 AM CDT Pulse 91 02/18/2022 8:28 AM CDT Temperature 36.3 C (97.3 F) 11/10/2020 3:49 PM DATABASE DBA Respiratory Rate 18 02/18/2022 8:28 AM CDT Oxygen Saturation 98% 02/18/2022 8:28 AM CDT Inhaled Oxygen Concentration - - Weight 87.1 kg (192 lb) 03/28/2025 10:57 AM CDT Height 170.2 cm (5' 7) 03/28/2025 10:57 AM CDT Body Mass Index 30.07 03/28/2025 10:57 AM CDT Plan of Treatment Health Maintenance Due Date Last Done Comments Colon Cancer Screening-Colonoscopy 1965 Hepatitis C Screening 1965 DTaP/Tdap/Td Vaccine (1 - Tdap) 1976 Hepatitis B Screening 1983 Zoster Vaccine (1 of 2) 2015 Depression Screening 05/04/2020 05/04/2019, 05/04/2019, 01/09/2019, Additional history exists Influenza Vaccine (#1) 2025 08/07/2018, 2014 Breast Cancer Screening-Mammogram 03/28/2026 03/28/2025, 02/24/2023, 04/19/2016, Additional history exists Cervical Cancer Screening 03/28/2026 03/28/2025 Regular Well Visit/Exam 18-64 03/28/2026 03/28/2025 Pneumococcal vaccine <65 Aged Out No longer eligible based on patient's age to complete this topic Medical Devices Implanted Type Area Group Reservations Coordinator Device Identifier Shelf Expiration Date Model / Serial / Lot Spinal Cord Stimulator Spinal Cord Stimulator Back St [employer] Neurostimulator [employer] Elite Thk13.4 Mm 5 In W49.5 Mm X H55.5 Mm Spinal Cord Implantable Pulse - [id number] - [id number] Implanted:Qty: 1 on 10/20/2017 by Danie Kathleen MD at [facility] 08/18/2019 [id number] / [id number] / Explanted Type Area Group Reservations Coordinator Device Identifier Shelf Expiration Date Model / Serial / Lot Galltio Spinal Cord Stimulator Explanted:Qty: 1 on 10/20/2017 at [facility] [employer] 3788 / [id number] / Procedures Procedure Name Priority Date/Time Associated Diagnosis Comments PAP AND HPV, REFLEX TO HPV GENOTYPES Routine 03/28/2025 1:31 PM CDT Cervical cancer screening SCREENING MAMMOGRAM BILATERAL W DARIUSZ Schedule Routine, Read Routine (OP Routine) 03/28/2025 11:38 AM CDT Screening mammogram, encounter for from Last 3 Months Results * Pap and HPV, reflex to HPV Genotypes (03/28/2025 1:31 PM CDT) Clinical indication Comment [facility] - 01 Comment: NEGATIVE FOR INTRAEPITHELIAL LESION OR MALIGNANCY. CELLULAR CHANGES ASSOCIATED WITH ATROPHY ARE PRESENT. Specimen adequacy: Comment [facility] - 01 Comment: Satisfactory for evaluation. Endocervical component may not be distinguished in cases of atrophy. Clinician provided ICD10 Comment [facility] - 01 Comment:Z12.4 Performed by Comment [facility] - 01 Comment:Jone Dumont, Cytolo gist (ASCP) . . [facility] - 01 Note: Comment [facility] - 01 Comment: The Pap smear is a screening test designed to aid in the detection of premalignant and malignant conditions of the uterine cervix. It is not a diagnostic procedure and should not be used as the sole means of detecting cervical cancer. Both false-positive and false-negative reports do occur. Test methodology Comment [facility] - 01 Comment: This liquid based ThinPrep(R) pap test was screened with the use of an image guided system. HPV Aptima Negative Negative [facility] 02 Comment: This nucleic acid amplification test detects fourteen high-risk HPV types (16,18,31,33,35,39,45,51,52,56,58,59,66,68) without differentiation. HPV Genotype Reflex Comment [facility] - 01 Comment:Criteria not met, HP V Genotype not performed. Thin prep-Endocervical 03/28/2025 1:31 PM CDT 03/28/2025 Narrative [facility] - 03/31/2025 3:17 AM CDT Performed at: 01 - [address] [id number] Supervisor Research Kennel: Shahnaz Fall MD, Phone: [phone] Performed at: 02 - [facility] [address] [place], [place] [id number] Supervisor Research Kennel: hSahnaz Fall MD, Phone: [phone] Specimen Comment: Source.............Cervix;Endocervix Specimen Comment: No. of containers..01 ThinPrep Vial Derrick Rios MD LAB CYTOLOGY ORDERABLES Fi nal Result [facility] - 01 [facility] 02 * Screening Mammogram Bilateral W Dariusz (03/28/2025 11:38 AM CDT) Anatomical Region Laterality Modality Breast Bilateral Mammography Narrative 03/29/2025 7:16 AM CDT Examination: Screening Mammogram Bilateral W Dariusz: 03/28/25 Clinical: Screening mammogram, encounter for. Prior Study Comparisons: Relevant prior studies available at the time of interpretation were reviewed, including the most recent mammogram on: 02/24/2023. Findings: Bilateral There is no suspicious mass, calcification, or architectural distortion in either breast. There are scattered areas of fibroglandular density. The patient will be notified of results by letter. Impression: BI-RADS ATLAS category (overall): 1 - Negative There is no mammographic evidence of malignancy. Routine Screening Mammogram in 1 Yr is recommended. Overall Assessment: 1 - Negative Self Screening Mammogram IMG MAMMO PROCEDURES Fi nal Result from Last 3 Months Insurance [facility] PLUS [facility] PLUS [facility]US [facility] PLUS Care Teams Online Marketing Strategist Relationship Specialty Start Date End Date Enrico Ziegler MD PCP - General Family Medicine 11/20/21
== END 2025-05-27 13:43 | disposition home or self-care (01) ==
PROVIDERS: Emergency Provider Nurse Practitioner Family; PCP Family Medicine Adolescent Medicine
DX: L60.0 Ingrowing nail (principal); I10 Essential (primary) hypertension; E78.00 Pure hypercholesterolemia, unspecified; K21.9 Gastro-esophageal reflux disease without esophagitis; M17.12 Unilateral primary osteoarthritis, left knee; F33.9 Major depressive disorder, recurrent, unspecified
CPT/HCPCS: 99213; G0463